=== PATIENT | male | born 1975 | race Hispanic/Latino ===

== ENCOUNTER 2019-04-28 21:19 | Emergency (ER) | payer MEDICARE ==
--- NOTE | 2019-04-28 22:05 | Emergency Department Report ---
Blank Doc - Documentation Documentation: 44-year-old male that presents with chest pain and n/.v This initial assessment/diagnostic orders/clinical plan/treatment(s) is/are subject to change based on patient's health status, clinical progression and re- assessment by fellow clinical providers in the ED. Further treatment and workup at subsequent clinical providers discretion. Patient/guardians urged not to elope from the ED as their condition may be serious if not clinically assessed and managed. Initial orders include: 1- Patient sent to MAIN ED for further evaluation and treatment 2- labs 3- EKG 4- CXR
[2019-04-28 22:55] LABS: Basophils # (Auto) 0.1 K/mm3 (0.0-0.1); Basophils % (Auto) 0.7 % (0.0-1.8); Eosinophils # (Auto) 0.3 K/mm3 (0.0-0.4); Eosinophils % (Auto) 3.9 % (0.0-4.3); Hematocrit 38.3 % (35.5-45.6); Hemoglobin 12.9 gm/dl (11.8-15.2); Lymphocytes # (Auto) 1.8 K/mm3 (1.2-5.4); Lymphocytes % (Auto) 22.4 % (13.4-35.0); Mean Corpuscular HGB Conc 34 % (32-34); Mean Corpuscular Volume 84 fl (84-94); Monocytes # (Auto) 0.6 K/mm3 (0.0-0.8); Monocytes % (Auto) 7.2 % (0.0-7.3); Platelet Count 262 K/mm3 (140-440); Red Blood Count 4.56 M/mm3 (3.65-5.03); Red Cell Distribution Width 14.4 % (13.2-15.2)
--- NOTE | 2019-04-28 22:59 | XRay Report ---
CHEST 2 VIEWS INDICATION / CLINICAL INFORMATION: Chest Pain. COMPARISON: 07/23/2010. FINDINGS: SUPPORT DEVICES: None. HEART / MEDIASTINUM: The heart size and pulmonary vasculature are normal. The aorta is normal in jacqueline miguel. LUNGS / PLEURA: No significant pulmonary or pleural abnormality. No pneumothorax. ADDITIONAL FINDINGS: No significant additional findings. IMPRESSION: No acute abnormality or significant change. Signer Name: Chuck Cohen MD Signed: 04/28/2019 10:54 PM Workstation Name: [id number]
[2019-04-28] MEDS ORDERED: ONDANSETRON 4 MG/2 ML INJ IV ONE (23:00)
[2019-04-28] MEDS ORDERED: FAMOTIDINE 20 MG/2 ML INJ IV ONE (23:00)
[2019-04-28] MEDS ORDERED: SODIUM CHLORIDE 0.9% 1000 ML 1,000 ML IV ONE (23:00)
--- NOTE | 2019-04-28 23:02 | Emergency Department Report ---
ED General Adult HPI - General Chief complaint: Chest Pain Stated complaint: HURTING IN CHEST/HBP/VOMITING Time Seen by Provider: 04/28/19 22:03 Source: patient, family, RN notes reviewed Mode of arrival: Ambulatory Limitations: No Limitations - History of Present Illness Initial comments: Primary care DrPaul: Dr Spence Past medical history: Diabetes, hypertension, cholecystectomy, hernia congenital developmental delay/mental retardation History obtained from patient and brother and [id number]. The patient is a 44-year-old gentleman who is not known to this provider previously. He is brought to the hospital by his family for evaluation of naus ea and vomiting, and subsequent chest pain. His family states that he was in his usual state of health earlier on today, when he had a few episodes of unopposed nonbloody, nonbilious emesis. The patient indicated that he was to having diffuse bandlike abdominal pain. He did not endorse any urinary symptoms or testicular pain. He only indicates that after vomiting, the patient developed central chest pain. The patient indicates his chest pain is central and does not radiate anywhere. There are no DVT or pulmonary embolism risk factors. He indicates the pain is aching. He does take aspirin on a daily basis. There is no family history of ischemic heart disease that patient and family are aware of. The patient is currently sitting comfortably in his stretcher, appears anxious, but is otherwise in no acute distress., Location: chest, abdomen Radiation: other Quality: other Consistency: other Improves with: other Worsens with: other Associated Symptoms: other Treatments Prior to Arrival: other - Related Data Previous Rx's Medication Instructions Recorded Last Taken Type Acetaminophen [Non-Aspirin Extra 500 mg PO Q6HR PRN #30 tablet 04/29/19 Unknown Rx Strength] Aspirin [Aspirin BABY CHEW TAB] 81 mg PO QDAY #30 tab.chew 04/29/19 Unknown Rx Famotidine [Pepcid] 20 mg PO BID #60 tablet 04/29/19 Unknown Rx Janet Root [Janet] 250 mg PO QID PRN #30 capsule 04/29/19 Unknown Rx Metoclopramide [Reglan] 10 mg PO QID PRN #30 tablet 04/29/19 Unknown Rx Allergies Allergy/AdvReac Type Severity Reaction Status Date / Time No Known Allergies Allergy Verified 04/26/15 03:19 ED Review of Systems ROS: Stated complaint: HURTING IN CHEST/HBP/VOMITING Other details as noted in HPI Constitutional: denies: fever Eyes: denies: eye discharge ENT: denies: congestion Respiratory: denies: wheezing Cardiovascular: chest pain. denies: syncope Gastrointestinal: abdominal pain, nausea, vomiting Genitourinary: denies: dysuria Musculoskeletal: denies: back pain Skin: denies: lesions Neurological: denies: weakness Psychiatric: anxiety Hematological/Lymphatic: denies: easy bleeding ED Past Medical Hx - Past Medical History Previous Medical History?: Yes Hx Hypertension: Yes Hx Diabetes: Yes Additional medical history: MR- HERNIA - Surgical History Past Surgical History?: No - Social History Smoking Status: Never Smoker Substance Use Type: None - Medications Home Medications: Home Medications Medication Instructions Recorded Confirmed Last Taken Type Acetaminophen [Non-Aspirin Extra 500 mg PO Q6HR PRN #30 tablet 04/29/19 Unknown Rx Strength] Aspirin [Aspirin BABY CHEW TAB] 81 mg PO QDAY #30 tab.chew 04/29/19 Unknown Rx Famotidine [Pepcid] 20 mg PO BID #60 tablet 04/29/19 Unknown Rx Janet Root [Janet] 250 mg PO QID PRN #30 capsule 04/29/19 Unknown Rx Metoclopramide [Reglan] 10 mg PO QID PRN #30 tablet 04/29/19 Unknown Rx ED Physical Exam - General Limitations: Other (patient has mental retardation and some developmental delay) General appearance: anxious, obese - Head Head exam: Present: atraumatic, normocephalic - Eye Eye exam: Present: normal appearance, EOMI. Absent: nystagmus - ENT ENT exam: Present: normal exam, normal orophraynx, mucous membranes moist, normal external ear exam - Neck Neck exam: Present: normal inspection, full ROM. Absent: tenderness, m eningismus - Respiratory Respiratory exam: Present: normal lung sounds bilaterally. Absent: respiratory distress - Cardiovascular Cardiovascular Exam: Present: normal rhythm, tachycardia, normal heart sounds. Absent: systolic murmur, diastolic murmur, rubs, gallop - GI/Abdominal GI/Abdominal exam: Present: soft. Absent: distended, tenderness, guarding, pulsatile mass - Rectal Rectal exam: Present: deferred - Extremities Exam Extremities exam: Present: normal inspection, full ROM, other (2+ pulses noted in the bilateral upper and lower extremities. The pelvis is stable. There is no long bony tenderness. The muscular compartments are soft. There is no redness, pus, streaking or erythema.). Absent: pedal edema, calf tenderness - Back Exam Back exam: Present: normal inspection, full ROM. Absent: tenderness, CVA tenderness (R), CVA tenderness (L), paraspinal tenderness, vertebral tenderness - Neurological Exam Neurological exam: Present: alert, normal gait, other (there is no facial droop. The tongue is midline. Extraocular movements are intact bilaterally. Speaking in full sentences. Hearing is grossly intact. 5 out of 5 strength bilateral upper and lower extremities. Sensation is intact to light touch bilateral upper and lower extremities.). Absent: motor sensory deficit - Psychiatric Psychiatric exam: Present: anxious - Skin Skin exam: Present: warm, dry, intact, normal color. Absent: rash ED Course Vital Signs 04/28/19 04/28/19 04/28/19 21:29 22:02 23:48 Temperature 98.4 F 98.4 F Pulse Rate 112 H 112 H Respiratory 18 18 36 H Rate Blood Pressure 137/77 137/77 O2 Sat by Pulse 98 98 Oximetry 04/28/19 04/28/19 04/29/19 23:53 23:54 00:01 Temperature Pulse Rate 108 H 94 H 102 H Respiratory 18 17 Rate Blood Pressure 107/71 107/71 O2 Sat by Pulse 96 96 Oximetry 04/29/19 04/29/19 04/29/19 00:15 00:21 00:31 Temperature Pulse Rate 97 H 111 H 92 H Respiratory 18 18 19 Rate Blood Pressure 107/71 107/71 107/71 O2 Sat by Pulse 95 96 94 Oximetry 04/29/19 04/29/19 04/29/19 01:05 01:17 01:31 Temperature Pulse Rate 93 H Respiratory 16 Rate Blood Pressure 107/71 107/71 108/76 O2 Sat by Pulse 98 96 96 Oximetry - Reevaluation(s) Reevaluation #1: 04/28/19 23:49 Differential diagnosis, including but not limited to: Colitis, renal colic, constipation, obstruction, diverticulitis, inflammatory bowel disease, inflammatory mesenteric disease, GERD, gastritis, hiatal hernia, pneumonia, costochondritis, pulmonary embolism Assessment and plan: 44-year-old gentleman who is a poor historian, secondary to MR, with family providing much collateral information, presenting with history of abdominal pain, nausea vomiting, and subsequent chest pain after nausea and vomiting. The patient is afebrile with reassuring vital signs but tachycardic. Given complaint of chest pain, abdominal pain, nausea vomiting, tachycardia, somewhat unreliable history as patient has MR, we will obtain CT scan of the chest, CT scan abdomen and pelvis, and reassess. This is unlikely to be a acute coronary syndrome at this time, based off of the current available information, patient at low risk for major adverse cardiac event as per the heart score: 1 points Low Score (0-3 points) Risk of MACE of 0.9-1.7%. Reevaluation #2: 04/29/19 00:24 Heart rate 91 bpm at this time. Resting comfortably and in no acute distress. CT scans pending at this time. Reevaluation #3: 04/29/19 02:05 No active vomiting at this time. CT scan of the chest negative for dissection, PE, pneumothorax. Coronary calcification is appreciated. CT scan abdomen and pelvis shows chronic findings, and possible pancreatitis versus duodenitis. Patient tolerating liquid feeds at this time. He will need to follow-up with outpatient cardiology to complete his outpatient cardiac risk stratification, and he'll need to follow up with his outpatient primary care doctor or post splitter for further evaluation of his GI findings. Patient's had a prolonged period of stable here in the emergency room without clinical decompensation, has clinically improved, and is suitable for trial of outpatient management. His family is reliable to have him follow-up. ED Medical Decision Making - Lab Data Result diagrams: 04/28/19 22:43 04/28/19 22:43 Vital Signs 04/28/19 04/28/19 21:29 22:02 Temperature 98.4 F 98.4 F Pulse Rate 112 H 112 H Respiratory 18 18 Rate Blood Pressure 137/77 137/77 O2 Sat by Pulse 98 98 Oximetry Lab Results 04/28/19 04/28/19 04/28/19 Range/Units 22:43 22:43 22:43 WBC 8.2 (4.5-11.0) K/mm3 RBC 4.56 (3.65-5.03) M/mm3 Hgb 12.9 (11.8-15.2) gm/dl Hct 38.3 (35.5-45.6) % MCV 84 (84-94) fl MCH 28 (28-32) pg MCHC 34 (32-34) % RDW 14.4 (13.2-15.2) % Plt Count 262 (140-440) K/mm3 Lymph % (Auto) 22.4 (13.4-35.0) % [place] % (Auto) 7.2 (0.0-7.3) % Eos % (Auto) 3.9 (0.0-4.3) % Baso % (Auto) 0.7 (0.0-1.8) % Lymph # 1.8 (1.2-5.4) K/mm3 [place] # 0.6 (0.0-0.8) K/mm3 Eos # 0.3 (0.0-0.4) K/mm3 Baso # 0.1 (0.0-0.1) K/mm3 Seg Neutrophils % 65.8 (40.0-70.0) % Seg Neutrophils # 5.4 (1.8-7.7) K/mm3 PT 13.7 (12.2-14.9) Sec. INR 1.04 (0.87-1.13) APTT 30.8 (24.2-36.6) Sec. Sodium 135 L (137-145) mmol/L Potassium 4.5 (3.6-5.0) mmol/L Chloride 97.1 L (98-107) mmol/L Carbon Dioxide 24 (22-30) mmol/L Anion Gap 18 mmol/L BUN 10 (9-20) mg/dL Creatinine 1.1 (0.8-1.5) mg/dL Estimated GFR > 60 ml/min BUN/Creatinine Ratio 9 % Glucose 138 H (75-100) mg/dL Calcium 9.3 (8.4-10.2) mg/dL Total Bilirubin 0.30 (0.1-1.2) mg/dL AST 29 (5-40) units/L ALT 28 (7-56) units/L Alkaline Phosphatase 64 (35-129) units/L Troponin T < 0.010 (0.00-0.029) ng/mL Total Protein 6.8 (6.3-8.2) g/dL Albumin 4.4 (3.9-5) g/dL Albumin/Globulin Ratio 1.8 % Lipase (13-60) units/L 04/28/19 Range/Units 22:43 WBC (4.5-11.0) K/mm3 RBC (3.65-5.03) M/mm3 Hgb (11.8-15.2) gm/dl Hct (35.5-45.6) % MCV (84-94) fl MCH (28-32) pg MCHC (32-34) % RDW (13.2-15.2) % Plt Count (140-440) K/mm3 Lymph % (Auto) (13.4-35.0) % [place] % (Auto) (0.0-7.3) % Eos % (Auto) (0.0-4.3) % Baso % (Auto) (0.0-1.8) % Lymph # (1.2-5.4) K/mm3 [place] # (0.0-0.8) K/mm3 Eos # (0.0-0.4) K/mm3 Baso # (0.0-0.1) K/mm3 Seg Neutrophils % (40.0-70.0) % Seg Neutrophils # (1.8-7.7) K/mm3 PT (12.2-14.9) Sec. INR (0.87-1.13) APTT (24.2-36.6) Sec. Sodium (137-145) mmol/L Potassium (3.6-5.0) mmol/L Chloride (98-107) mmol/L Carbon Dioxide (22-30) mmol/L Anion Gap mmol/L BUN (9-20) mg/dL Creatinine (0.8-1.5) mg/dL Estimated GFR ml/min BUN/Creatinine Ratio % Glucose (75-100) mg/dL Calcium (8.4-10.2) mg/dL Total Bilirubin (0.1-1.2) mg/dL AST (5-40) units/L ALT (7-56) units/L Alkaline Phosphatase (35-129) units/L Troponin T (0.00-0.029) ng/mL Total Protein (6.3-8.2) g/dL Albumin (3.9-5) g/dL Albumin/Globulin Ratio % Lipase 19 (13-60) units/L - EKG Data -: EKG Interpreted by Wi EKG shows normal: sinus rhythm Rate: tachycardia - EKG Data 04/28/19 23:47 EKG 04/28/19 23:48 EKG #1 shows a sinus tachycardia, low voltage, normal axis, QTC 420 ms, motion artifact, it is not consistent with STEMI. EKG #2 was unchanged from prior. Neither EKG is consistent with STEMI. - Radiology Data Radiology results: pending, report reviewed, image reviewed X-ray the chest is negative for acute disease. CT scan of the chest: CT scan abdomen and pelvis: Print Report Referring Physician: ANNIE JOY Patient Name: ANNIE GUERRA Date of : 1975 Sex: Male Report Date: 2019-04-29 Report Status: Finalized Findings [facility] [address] [id number] Cat Scan Report Signed Patient: ANNIE GUERRA MR#: [id number] : 1975 Acct:[id number] Age/Sex: 44 / M ADM Date: 04/28/19 Loc: ED Attending Dr: Ordering Physician: ANNIE JOY MD Date of Service: 04/28/19 Procedure(s): CT angio chest Accession Number(s): [id number] cc: ANNIE JOY MD CT ANGIOGRAPHY OF THE CHEST WITH INTRAVENOUS CONTRAST AND MULTIPLANAR MIP RECONSTRUCTIONS INDICATION / CLINICAL INFORMATION: Chest pain and tachycardia. TECHNIQUE: Axial CT images were obtained after injection of 100 cc Omnipaque 350 IV contrast using CTA protocol. 3 plane MIP / 3D reconstructions were produced. All CT scans at this location are performed using CT dose reduction for ALARA by means of automated exposure control. COMPARISON: None available. FINDINGS: There is mild motion artifact. There is adequate opacification of the pulmonary arterial system bilaterally without intraluminal filling defect to suggest acute PTE. The thoracic aorta is normal in caliber without dissection. There is mild left main coronary artery calcification. The tracheobronchial tree is normal. The lung parenchyma is clear. There is no evidence of adenopathy or effusion. The gallbladder is surgically absent. The visualized upper abdomen is otherwise unremarkable. No acute osseous abnormality is identified. IMPRESSION: 1. No evidence of acute PTE or aortic dissection. 2. Mild coronary artery calcification at the level of the left main coronary artery. Signer Name: Chuck Cohen MD Signed: 04/29/2019 1:48 AM Workstation Name: [id number] Transcribed By: RT Dictated By: Chuck Cohen MD Electronically Authenticated By: Chuck Cohen MD Signed Date/Time: 04/29/19147 DD/ 3 TD/TT: Print Report Referring Physician: ANNIE JOY Patient Name: ANNIE GUERRA Date of : 1975 Sex: Male Report Date: 2019-04-29 Report Status: Finalized Findings [facility] [address] [place] [address] Cat Scan Report Signed Patient: ANNIE GUERRA MR#: [id number] : 1975 Acct:[id number] Age/Sex: 44 / M ADM Date: 04/28/19 Loc: ED Attending Dr: Ordering Physician: ANNIE JOY MD Date of Service: 04/28/19 Procedure(s): CT abdomen pelvis w con Accession Number(s): [id number] cc: ANNIE JOY MD CT OF THE ABDOMEN AND PELVIS WITH INTRAVENOUS CONTRAST INDICATION / CLINICAL INFORMATION: Abdominal pain, chest pain, nausea and vomiting. TECHNIQUE: The patient received 100 cc Omnipaque [address] scans at this location are performed using CT dose reduction for ALARA by means of automated exposure control. COMPARISON: 04/26/2015. FINDINGS: ABDOMEN: The gallbladder is surgically absent. There is mild inflammation in the region of the pancreatic head and third portion of the duodenum. There is mild associated soft tissue stranding in the adjacent retroperitoneal and mesenteric fat. No focal fluid collection is seen. There is no evidence of mass or free air. The liver, spleen, bile ducts, remainder of the pancreas, adrenal glands and kidneys are normal. I see no evidence of bowel obstruction. PELVIS: The distal ureters and urinary bladder are normal. The prostate gland is small. A normal appendix is present and there is no evidence of diverticulitis. There is chronic inflammation in the root of the small bowel mesentery similar to the prior study. IMPRESSION: 1. Mild acute appearing inflammation near the junction of the pancreatic head and third portion of the duodenum. The findings may be related to duodenitis, pancreatitis or mesenteric panniculitis. 2. Chronic mesenteric panniculitis inferiorly is similar to the prior study. Signer Name: Chuck Cohen MD Signed: 04/29/2019 1:53 AM Workstation Name: [id number] Transcribed By: RT Dictated By: Chuck Cohen MD Electronically Authenticated By: Chuck Cohen MD Signed Date/Time: 04/29/19 0153 DD/ 0148 Critical care attestation.: If time is entered above; I have spent that time in minutes in the direct care of this critically ill patient, excluding procedure time. ED Disposition Clinical Impression: History of nausea and vomiting, History of chest pain Disposition: - TO HOME OR SELFCARE Is pt being admited?: No Does the pt Need Aspirin: No Condition: Stable Additional Instructions: Patient should not take metformin medication for the next 2 days, if he takes this medication. Otherwise, the patient may continue the current outpatient medications that he is taking. Patient should avoid consumption of Motrin, ibuprofen, Naprosyn, Aleve, heavy and spicy food, alcohol. Advance diet as tolerated, drink plenty of fluids, eat plenty of fiber, lean protein and vegetables. CT scan of the chest showed calcifications in the coronary arteries, the patient should follow-up with the primary care doctor or photographic equipment technician for this finding within the next 3-[address] scan of the abdomen and pelvis showed nonspecific inflammation of the pancreas and/or small intestine. Take the pain medication, nausea medication as needed and/or directed, and follow-up with either a primary care doctor or post splitter for these findings within the next 5-7 days. Advance diet as tolerated. Please have a primary care doctor contact the medical records department to obtain laboratory studies and CT scan results to follow-up on these findings. Please return to the emergency room right away with projectile vomiting, change in mental status, confusion, inability to tolerate liquid feeds, new, worsened or different symptoms not present on the initial emergency room evaluation. Referrals: [facility] [Provider Group] - 3-5 Days [facility] [Provider Group] - 3-5 Days [facility] [Provider Group] - 3-5 Days [facility] [Provider Group] - 3-5 Days
[2019-04-28 23:06] LABS: INR 1.04 (0.87-1.13)
[2019-04-28 23:07] LABS: Partial Thromboplastin Time 30.8 Sec. (24.2-36.6)
[2019-04-28 23:19] LABS: Alanine Aminotransferase 28 units/L (7-56); Albumin 4.4 g/dL (3.9-5); BUN/Creatinine Ratio 9; Blood Urea Nitrogen 10 mg/dL (9-20); Calcium 9.3 mg/dL (8.4-10.2); Hemolysis Index 3
[2019-04-29 00:15] LABS: Bilirubin,Urine NEG (Negative); Blood,Urine NEG (Negative); Color,Urine Straw (Yellow); Protein,Urine <15 mg/dL mg/dL (Negative); Urobilinogen,Urine < 2.0 mg/dL (<2.0)
[2019-04-29] MEDS ORDERED: SODIUM CHLORIDE 0.9% 1000 ML 1,000 ML IV ONE (00:19)
[2019-04-29] MEDS ORDERED: MAGNESIUM SULFATE 2 GM/50 ML BAG IV ONE (00:37)
[2019-04-29 01:42] VITALS: BP 108/76
--- NOTE | 2019-04-29 01:52 | Cat Scan Report ---
CT ANGIOGRAPHY OF THE CHEST WITH INTRAVENOUS CONTRAST AND MULTIPLANAR MIP RECONSTRUCTIONS INDICATION / CLINICAL INFORMATION: Chest pain and tachycardia. TECHNIQUE: Axial CT images were obtained after injection of 100 cc Omnipaque 350 IV contrast using CTA protocol. 3 plane MIP / 3D reconstructions were produced. All CT scans at this location are performed using CT dose reduction for ALARA by means of automated exposure control. COMPARISON: None available. FINDINGS: There is mild motion artifact. There is adequate opacification of the pulmonary arterial system bilat erally without intraluminal filling defect to suggest acute PTE. The thoracic aorta is normal in jacqueline miguel without dissection. There is mild left main coronary artery calcification. The tracheobronchial tree is normal. The lung parenchyma is clear. There is no evidence of adenopathy or effusion. The gallbladder is surgically absent. The visualized upper abdomen is otherwise unremar kable. No acute osseous abnormality is identified. IMPRESSION: 1. No evidence of acute PTE or aortic dissection. 2. Mild coronary artery calcification at the level of the left main coronary artery. Signer Name: Chuck Cohen MD Signed: 04/29/2019 1:48 AM Workstation Name: [id number]
--- NOTE | 2019-04-29 01:57 | Cat Scan Report ---
CT OF THE ABDOMEN AND PELVIS WITH INTRAVENOUS CONTRAST INDICATION / CLINICAL INFORMATION: Abdominal pain, chest pain, nausea and vomiting. TECHNIQUE: The patient received 100 cc Omnipaque [address] scans at this location are perfor med using CT dose reduction for ALARA by means of automated exposure control. COMPARISON: 04/26/2015. FINDINGS: ABDOMEN: The gallbladder is surgically absent. There is mild inflammation in the region of the pancre atic head and third portion of the duodenum. There is mild associated soft tissue stranding in the ad jacent retroperitoneal and mesenteric fat. No focal fluid collection is seen. There is no evidence of mass or free air. The liver, spleen, bile ducts, remainder of the pancreas, adrenal glands and kidneys are normal. I se e no evidence of bowel obstruction. PELVIS: The distal ureters and urinary bladder are normal. The prostate gland is small. A normal appe ndix is present and there is no evidence of diverticulitis. There is chronic inflammation in the root of the small bowel mesentery similar to the prior study. IMPRESSION: 1. Mild acute appearing inflammation near the junction of the pancreatic head and third portion of th e duodenum. The findings may be related to duodenitis, pancreatitis or mesenteric panniculitis. 2. Chronic mesenteric panniculitis inferiorly is similar to the prior study. Signer Name: Chuck Cohen MD Signed: 04/29/2019 1:53 AM Workstation Name: [id number]
== END 2019-04-29 02:30 | disposition home or self-care (01) ==
LOC: ED 21:19
DX: R11.2 Nausea with vomiting, unspecified (principal); R07.89 Other chest pain; I10 Essential (primary) hypertension; E11.9 Type 2 diabetes mellitus without complications; Z79.899 Other long term (current) drug therapy
CPT/HCPCS: 36415; 71046; 71275; 74177; 80053; 81001; 82550; 83690; 83735; 84484; 85025; 85610; 85730; 93005; 93010; 96361; 96365; 96375; 99285; J2405; J3475; J7030; Q9967